=== PATIENT | male | born 1985 | race Caucasian/White ===

== ENCOUNTER → 2021-10-26 12:24 | Outpatient (BNVA) | payer MEDICAID, SELFPAY | PROVIDERS: Visit Provider Emergency Medicine | DX: M25.571 Pain in right ankle and joints of right foot (principal) | CPT/HCPCS: 73610 ==

== ENCOUNTER → 2022-07-24 17:52 | Outpatient (BNVA) | payer MEDICAID, SELFPAY | PROVIDERS: Visit Provider Nurse Practitioner Family | DX: R10.9 Unspecified abdominal pain (principal); M25.521 Pain in right elbow; R20.2 Paresthesia of skin; N50.812 Left testicular pain; R10.32 Left lower quadrant pain | CPT/HCPCS: 81000; 87086 ==

== ENCOUNTER → 2022-08-02 15:50 | Outpatient (BNVA) | payer MEDICAID, SELFPAY | PROVIDERS: Visit Provider Emergency Medicine | DX: M25.521 Pain in right elbow (principal); R20.2 Paresthesia of skin | CPT/HCPCS: 73080 ==

== ENCOUNTER 2022-09-19 13:16 | Outpatient (CLI) | payer BC, SELFPAY ==
--- NOTE | 2022-09-19 13:15 | US_ITS ---
WS: [id number] TESTICULAR ULTRASOUND HISTORY: N50.812 - Left testicular pain COMPARISON: None available. TECHNIQUE: Real-time and color Doppler imaging or utilized to perform a testicular ultrasound. Right testicle: 3.6 cm x 3.0 cm x 1.9 cm. Normal size and echogenicity. No mass or torsion. Normal color Doppler is present throughout. Systolic and diastolic velocities are both present. No significant hydrocele. Right epididymis: Normal epididymis with no increased vascularity. Small spermatocele with a maximum diameter 4 mm. Left testicle: 3.7 cm x 3.5 cm x 1.9 cm. Normal size and echogenicity. No mass or torsion. Normal color Doppler is present throughout. Systolic and diastolic velocities are both present. No significant hydrocele. Left epididymis: Normal epididymis with no increased vascularity. Mildly prominent and piriform complexes, bilaterally. Early changes of varicoceles likely but minimal at this time. US/US scrotum [id number] IMPRESSION: 1. No testicular mass or torsion. 2. No orchitis.
== END 2022-09-19 13:17 | disposition home or self-care (01) ==
LOC: RAD 13:18
PROVIDERS: Visit Provider Nurse Practitioner Family
DX: N50.812 Left testicular pain (principal); R10.32 Left lower quadrant pain
CPT/HCPCS: 76870

== ENCOUNTER 2022-12-28 13:55 | Emergency (ER) | payer BC, MEDICAID, SELFPAY ==
[2022-12-28 14:04] VITALS: BP 153/91; PULSE 77; RESP 15; TEMP 36.8; O2SAT 96
--- NOTE | 2022-12-28 16:46 | W.ED.SKABFB ---
HPI - Skin/Abscess/Foreign Bdy General: Chief complaint: Skin/Abscess/Foreign Body Stated complaint: face swelling Time Seen by Provider: 12/28/22 16:31 History of Present Illness: Patient is a 37-year-old male who comes to the ED with dental infection. Patient has had problems with his teeth for over a year and he has been trying to get appointment scheduled to get some of his teeth pulled. Several days ago patient started developing some pain in his right upper molar region of jaw. This morning he woke up and he had swelling on the right maxillary region of his face. Facial swelling improved with cold pack placed on swollen area of face. Patient saw PCP 2 days ago and was put on a prescription for clindamycin and tramadol. Patient has only taken 1 full day of antibiotic. Denies any trouble breathing. Associated symptoms: Deny chills, fever(s), nausea or vomiting Review of Systems Const: Denies: fever(s), chills or fatigue Eyes: Denies: change in vision or eye discomfort ENMT: Reports: dental pain; Denies: throat pain, odynophagia, nasal discharge or nasal congestion Card: Denies: chest pain, palpitations, edema, swelling of feet/ankles, dyspnea on exertion or orthopnea Resp: Denies: dyspnea, productive cough or non-productive cough GI: Denies: abdominal pain, nausea, vomiting, diarrhea, constipation or hematochezia : Denies: flank pain, difficulty urinating, dysuria or hematuria Musc: Denies: neck pain, back pain or extremity swelling Skin/Breast: Denies: rash or new lesions Neuro: Denies: headache(s), numbness in extremities or weakness in extremities [facility] ED PFSH: Medical History (Updated 12/29/22 @ 07:31 by GORDO Dutton) ADHD Anxiety MDD (major depressive disorder) No pertinent family history Social History Smoking and tobacco status: current every day smoker (vaping) Current gender identity: Male Physical Exam Const: COMMON NORMALS: no acute distress, patient oriented x3 and alert HENMT: COMMON NORMALS: normocephalic HEAD & SCALP: normocephalic MOUTH: Normal oral and palatal mucosa present TEETH & GINGIVA: Yes caries, Yes gingiva abnormal edematous (Around top right molars) and tender (Around top right molars) and Yes poor dentition THROAT: posterior oropharynx normal and uvula midline OTHER: Patient is poor dentition with extensive dental caries and dental decay throughout oral cavity. Neck/C-Spine: COMMON NORMALS: supple GENERAL: Yes normal visual inspection Resp: COMMON NORMALS: normal respiratory effort, No retractions, No use of accessory muscles and clear to auscultation bilaterally AUSCULTATION: clear to auscultation bilaterally Cardio: COMMON NORMALS: regular rate, regular rhythm, S1 normal heart sound present, S2 normal heart sound present, No gallops present (Cardio), No clicks present (Cardio), No murmurs present (Cardio) and Peripheral pulses 2+ throughout RATE: regular rate RHYTHM: regular rhythm HEART SOUNDS: S1 normal heart sound present and S2 normal heart sound present PERIPHERAL PULSES: Peripheral pulses 2+ throughout GI: COMMON NORMALS: Normal to inspection, nondistended, normoactive bowel sounds present, Soft to palpation, non-tender and no masses PALPATION: Yes Soft to palpation : COMMON NORMALS: Yes no CVA tenderness BLADDER/KIDNEY EXAM: Yes no CVA tenderness Back/Pelvis: COMMON NORMALS: no CVA tenderness Extremity: COMMON NORMALS: normal to inspection Neuro: COMMON NORMALS: patient oriented x3 SENSORIUM/ORIENTATION: Yes alert GAIT: Yes Normal gait present Skin: GENERAL SKIN EXAM: dry skin Course Vital Signs: Vital signs: Vital Signs Temperature 98.2 F 12/28/22 14:04 Pulse Rate 77 12/28/22 14:04 Respiratory Rate 15 12/28/22 14:04 Blood Pressure 153/91 12/28/22 14:04 Pulse Oximetry 96 12/28/22 14:04 Oxygen Delivery Me thod Room Air 12/28/22 14:04 MDM - Skin/Abscess/Foreign Bdy Medicial Decision Making Patient is a 37-year-old male who comes to the ED with dental infection. Patient has had problems with his teeth for over a year and he has been trying to get appointment scheduled to get some of his teeth pulled. Several days ago patient started developing some pain in his right upper molar region of jaw. This morning he woke up and he had swelling on the right maxillary region of his face. Facial swelling improved with cold pack placed on swollen area of face. Patient saw PCP 2 days ago and was put on a prescription for clindamycin and tramadol. Patient has only taken 1 full day of antibiotic. Denies any trouble breathing. Vitals are stable. Patient has poor dentition with extensive dental caries and teeth decay all throughout his oral cavity. Gingival edema and erythema noted around top right molars. Rest of exam is benign. Patient was given a dose of Percocet and Rocephin IM here in the ED. He was stable for discharge home diagnosed with a dental infection. He was told to continue taking his previously prescribed clindamycin and tramadol for pain. He was informed to follow-up with dentist as soon as possible to have dental infection further evaluated and treated. Patient understood and agreed with plan. Discharge Plan Discharge Patient Disposition: Home Clinical Impression: Dental infection Condition: Stable Prescriptions: No Action meloxicam 7.5 mg tablet 7.5 mg PO BEDTIME Qty: 30 1RF Discharge Orders: Discharge ED (Routine); Ordered 12/28/22 Ordered By: Brett Wilkinson Discharge Diet: Regular Discharge Activity: Increase activity as tolerated Activity Restrictions/Additional Instructions: Follow-up with dentist at your next scheduled appointment to have dental infection treated. Continue taking your previously prescribed clindamycin and tramadol. Return to the ER or your medical provider if condition worsens. Please read and understand discharge instructions. Thank you for choosing [facility] for your healthcare needs today. Please realize this is an emergency room and that we are providing you with a medical screening exam and this may not be complete and all inclusive of all the testing and or work up that you may need to determine your ailment or severity of your illness. It is very important that you follow up as instructed or that you return to the Emergency Department should you have concerns or if your condition changes or worsens in any way. 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
[2022-12-28] MEDS: cefTRIAXone 1,000 MG in water for injection-sterile 2.1 ML 1 MG IM (17:01)
[2022-12-28] MEDS: oxyCODONE-APAP 5-325 mg Tablet 1 TAB PO (17:02)
== END 2022-12-28 17:06 | disposition home or self-care (01) ==
PROVIDERS: Emergency Provider Physician Assistant
DX: K04.7 Periapical abscess without sinus (principal); F17.290 Nicotine dependence, other tobacco product, uncomplicated
CPT/HCPCS: 96372; 99284; J0696

== ENCOUNTER 2023-04-06 21:24 | Inpatient (IN) | payer OTHER, BC, SELFPAY ==
[2023-04-06 21:25] VITALS: BP 151/101; PULSE 56; RESP 16; TEMP 36.7; O2SAT 98; BMI 23.8
--- NOTE | 2023-04-06 21:30 | W.ED.PSYCHS ---
HPI - Psych General: Chief Complaint: Psychiatric Symptoms Stated Complaint: SI/ Had knife to throat Time Seen by Provider: 04/06/23 21:26 Source: patient and EMS Mode of arrival: EMS Limitations: no limitations History of Present Illness: 37-year-old male who states that he has had increasing depression he states he tried to use feeling suicidal he states he had a knife to his throat and felt like he was going to do it he had called to get out he was brought in by EMS Associated symptoms: Reports depression and suicidal ideation Review of Systems Const: Denies: fever(s) or chills Eyes: Denies: eye discomfort ENMT: Denies: throat pain or dental pain Card: Denies: chest pain Resp: Denies: dyspnea GI: Denies: abdominal pain, nausea, vomiting or diarrhea Musc: Denies: neck pain or back pain Skin/Breast: Denies: rash Neuro: Denies: headache(s) Psych: Reports: depression and suicidal ideation PFS ED PFSH: Medical History ADHD Anxiety MDD (major depressive disorder) No pertinent family history Social History Smoking and tobacco/nicotine status: current every day tobacco/nicotine user (vaping) Current gender identity: Male Physical Exam Const: COMMON NORMALS: no acute distress, patient oriented x3 and healthy appearing HENMT: COMMON NORMALS: normocephalic and atraumatic HEAD & SCALP: normocephalic and atraumatic Eye: COMMON NORMALS: conjunctivae normal CONJUNCTIVA: Yes conjunctivae normal Neck/C-Spine: COMMON NORMALS: full ROM and supple Chest: COMMONS NORMALS: normal inspection of the chest and normal palpation of entire chest wall Resp: COMMON NORMALS: normal respiratory effort, No retractions, No use of accessory muscles and clear to auscultation bilaterally AUSCULTATION: clear to auscultation bilaterally Cardio: COMMON NORMALS: regular rate, regular rhythm and No murmurs present (Cardio) RATE: regular rate RHYTHM: regular rhythm GI: COMMON NORMALS: Normal to inspection, nondistended, normoactive bowel sounds present, Soft to palpation, non-tender and no masses PALPATION: Yes Soft to palpation Extremity: COMMON NORMALS: normal to inspection and full ROM Neuro: COMMON NORMALS: patient oriented x3, moves all extremities and no focal motor deficits Psych: COMMON NORMALS: mental status grossly normal, Normal thought process present and cooperative MOOD & AFFECT: Yes depressed mood THOUGHT PROCESS: Normal thought process present THOUGHT CONTENT: Yes Suicidality present Skin: COMMON NORMALS: no rashes or lesions noted and no wounds GENERAL SKIN EXAM: no rashes or lesions noted Course Vital Signs: Vital signs: Vital Signs Temperature 98.0 F 04/06/23 21:25 Pulse Rate 56 L 04/06/23 21:25 Respiratory Rate 16 04/06/23 21:25 Blood Pressure 151/101 04/06/23 21:25 Pulse Oximetry 98 04/06/23 21:25 MDM - Psych Medical Decision Making patient presents here with suicidal ideations he is medically cleared spoke to psychiatrist Dr. Jaramillo and will admit at this time Medical Records I reviewed the patient's medical records. Lab Data I reviewed the patient's lab results. 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
--- NOTE | 2023-04-06 21:58 | PC.NURSE ---
96 Hour Hold Pt served with copy of 96 Hour Hold by this RN and Security. Pt was pleasant and denied need for further education.
[2023-04-06 22:03] LABS: Basophils # 0.1 10^3/uL (0.0-0.1); Basophils % 0.5 %; Eosinophils # 0.2 10^3/uL (0.0-0.8); Eosinophils % 1.3 %; Hematocrit 43.5 % (37-53); Lymphocytes # 1.2 10^3/uL (0.8-4.8); Lymphocytes % 7.9 %; Mean Corpuscular HGB Conc 32.9 g/dL (30-55); Mean Corpuscular Hemoglobin 29.4 pg (27-33); Mean Corpuscular Volume 89.5 fl (82-101); Mean Platelet Volume 12.3 fL (7.4-10.4); Monocytes # 0.6 10^3/uL (0.2-0.9); Monocytes % 4.2 %; Neutrophils # 13.14 10^3/uL (1.8-7.7); Neutrophils % 85.6 %; Nucleated Red Blood Cells % 0 %; Platelet Count 171 10^3/cmm (157-399); Red Blood Count 4.86 10^6/uL (3.85-5.65); White Blood Count 15.35 10^3/uL (3.29-11.43)
[2023-04-06 22:19] LABS: Amphetamines Screen Urine Negative (Negative); Cocaine Screen Urine Negative (Negative); Opiate Screen Urine Negative (Negative); PCP Screen Urine Negative (Negative); THC Screen Urine Positive (Negative)
[2023-04-06 22:20] LABS: Barbiturates Screen Urine Negative (Negative); Benzodiazepines Screen Urine Negative (Negative)
[2023-04-06 22:22] LABS: Alanine Aminotransferase 11 U/L (0-41); Albumin Level 4.4 g/dL (3.5-5.2); Alkaline Phosphatase 66 U/L (40-130); Anion Gap 11.9 (5-19); Aspartate Amino Transferase 13 U/L (0-40); Blood Urea Nitrogen 7 mg/dL (6-20); Calcium 9.3 mg/dL (8.5-10.5); Carbon Dioxide 28 mmol/L (22-29); Chloride 105 mmol/L (98-107); Globulin 2.4 g/dL (1.3-4.6); Glomerular Filtration Rate 94.4 mL/min (90-130); Glucose 96 mg/dL (65-115); Osmolality Calculated 290 mOsm/kg (285-295); Potassium 3.9 mmol/L (3.5-5.1); Sodium 141 mmol/L (136-145); Total Bilirubin 1.5 mg/dL (0.15-1.2); Total Protein 6.8 g/dL (6.6-8.7)
[2023-04-06 22:24] LABS: Acetaminophen < 5.0 ug/mL (10-30); Alcohol Level < 10 mg/dL (0-10); Salicylate < 0.3 mg/dL (3-10)
[2023-04-06 22:44] VITALS: BP 151/101; PULSE 56; RESP 16; TEMP 36.7; O2SAT 98
[2023-04-06 23:18] VITALS: BP 129/76; PULSE 63; RESP 18; TEMP 36.8; O2SAT 98
--- NOTE | 2023-04-06 23:33 | PC.ADMIT ---
[email or web address] [facility] Admission Note: The patient,Sp Padilla,37 y/o, was given written information regarding hospital policies, unit procedures and contact persons. Patient's smoking status: current every day smoker.1-2 PACKS A DAY Vital Signs - 8 hr 04/06/23 21:25 04/06/23 22:44 04/06/23 23:17 Temperature 98.0 F 98.0 F Pulse Rate 56 L 56 L Respiratory Rate 16 16 Blood Pressure 151/101 151/101 Pulse Oximetry 98 98 Oxygen Delivery Method Room Air 04/06/23 23:18 Temperature 98.3 F Pulse Rate 63 Respiratory Rate 18 Blood Pressure 129/76 Pulse Oximetry 98 Oxygen Delivery Method Room Air PT WAS ADMITTED FROM ER VIA WHEELCHAIR AND SECURITY AT 2238 IN NO ACUTE DISTRESS. PT WAS PLACED ON A 96 HOUR HOLD THAT ENDS 04/11/23 AT 0001. PT STATES HE IS HERE BECAUSE I HAD A KNIFE IN MY HAND TONIGHT AND WANTED TO HARM MYSELF. PT HAS A HEART MONITOR IN PLACE DUE TO A ATRIAL SEPTAL ANYREUSM THAT HE WAS RECENTLY DIAGNOSED WITH IN [place]. HEART MONITOR IS ADHERED TO MIDDLE OF CHEST AND HAS A PHONE TO RECORD THE DATA. PT CAN NOT BE MORE THAN 10 FEET FROM THE PHONE.PT REPORTS MORPHINE AND PCN ALLERGIES. REPORTS HE TAKES KEPPRA 1250 PO BID FOR SEIZURES WITH HIS LAST SEIZURE BEING 2 WEEKS AGO. ALSO STATES HE RECENTLY WAS PLACED ON EFFEXOR 75 MG AND BELIEVES HIS SUICIDAL FEELINGS ARE FROM THE MEDICATION. PT WAS BEING WEANED OFF OF CYMBALTA BUT PT STATES HE JUST STOPPED TAKING IT ALL TOGETHER. PT REPORTS ALSO TAKING PROTONIX 40 MG PO DAILY AND VITAMIN B6 DAILY AND VITAMIN D DAILY. BROUGHT IN MEDICATIONS THIS RN WILL REVIEW AND RECONCILE. PT DECLINES FLU VACCINATION. PT DENIES SI/HI AND AVH AT THIS TIME. PT STATES HE NO LONGER FEELS LIKE HARMING HIMSELF. SKIN ASSESSMENT REVEALED A BASEBALL SIZE BRUISE TO RIGHT INNER THIGH AND MULTIPLE TATTOOS. PT WAS WANDED. PT STATES HE USES [facility]. PT STATES HE HAS A MEDICAL MARIJUANA CARD AND SMOKES THC DAILY. UDS POSITIVE FOR THC. PT STATES HE HAS BEEN DIAGNOSED WITH ADHD, ANXIETY AND DEPRESSION BUT DOES NOT SEE A PSYCHIATRIST AT THIS TIME, HIS ROLL LINE OPERATOR PRESCRIBES HIM HIS MENTAL HEATLH MEDICATIONS. PT ORIENTED TO UNIT/RULES AND SAFETY GUIDELINES. ALL QUESTIONS ANSWERED AND SUPPORT WAS VOICED. PT OFFERED DRINK AND SNACK BUT DECLINED. ASSISTED TO ROOM WHERE STAFF IS PRESENT FOR ONE ON ONE CARE DUE TO HEART MONITOR AND PHONE. [address]
--- NOTE | 2023-04-07 00:01 | PC.NURSE ---
HOME MEDICATIONS RECEIVED FROM PT PROPERTY. NEW ORDERS RECEIVED FROM DR. CASAS TO START KEPPRA 1000MG PO BID, PROTONIX 40 MG PO DAILY, VITAMIN B6 50 MG PO DAILY AND VITAMIN D3 1000 UNITS PO DAILY. ORDERS PLACED, PT EDUCATED. VERBALIZED UNDERSTANDING.
[2023-04-07 06:00] VITALS: BP 114/72; PULSE 64; RESP 15; TEMP 36.8; O2SAT 97
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
[2023-04-07] MEDS: cholecalciferol (vitamin D3) 1,000 unit Tablet 1000 UNIT PO (09:02)
[2023-04-07] MEDS: levETIRAcetam 500 mg Tablet 1000 MG PO ×2 (09:02→20:41)
[2023-04-07] MEDS: pyridoxine 50 mg Tablet PO (09:03)
[2023-04-07] MEDS: pantoprazole DR 40 mg Tablet PO (09:03)
--- NOTE | 2023-04-07 10:54 | PC.NURSE ---
Patient denies avh and si/hi this morning. He does, however, endorse not caring if he lives or not. He states, I'm just tired of fighting. You have to have something to fight for. Patient says he is a bit anxious this morning and very irritated because he feels he ruined his relationship with his and he reports she was very short with him. He also expresses frustration with his medical status, as he currently has to wear a heart monitor and is having seizures for no apparent reason. Support was voiced and patient agreed to let nurse know if his anxiety worsened or if his thoughts of suicide resurfaced.
[2023-04-07] MEDS: nicotine 4 mg lozenge MUCOUS MEM ×2 (11:00→18:07)
--- NOTE | 2023-04-07 11:12 | PC.NURSE ---
Patient reported bloody stools. Dr. Jaramillo was notified by this RN. No further orders were given at this time.
[2023-04-07] MEDS: venlafaxine ER (24HR) 150 mg Capsule PO (12:12)
[2023-04-07 14:00] VITALS: BP 137/77; PULSE 58; RESP 16; TEMP 36.6; O2SAT 100
[2023-04-07 20:10] VITALS: BP 134/88; PULSE 71; RESP 16; TEMP 36.9; O2SAT 96
[2023-04-07] MEDS: acetaminophen 325 mg Tablet 650 MG PO (20:41)
[2023-04-07] MEDS: OLANZapine 5 mg ODT PO (20:41)
--- NOTE | 2023-04-07 21:47 | PC.NURSE ---
PT IN BED, ONE ON ONE SITTER AT BEDSIDE DUE TO HEART MONITOR AND CELL PHONE THAT RECORDS DATA. PT REPORTS HEADACHE 11/30, TYLENOL WAS GIVEN ORDERED. PT ENDORSES SUICIDAL THOUGHTS WITH SEVERAL PLANS TO END IT ALL. PT WOULD NOT ELABORATE ON PLANS AT THIS TIME, ONLY STATES IT DOESN'T MATTER HOW. PT STATES HE FEELS LIKE HE IS HAVING THESE SUICIDAL THOUGHTS DUE TO TAKING KEPPRA. PT STATED TO RN YOU DO KNOW THAT IS A SIDE EFFECT RIGHT, PT WAS ENCOURAGED TO DISCLOSE PLAN BUT DID NOT. PT AGREED TO COME AND SPEAK TO STAFF IF SUICIDAL FEELINGS GOT WORSE OR HE WAS HAVING FEELINGS OF HARMING SELF. PT STATES I'M NOT GOING TO HURT MYSELF WHILE I'M HERE, THEN HE LAUGHED AND SHRUGGED HIS SHOULDER. PT HAS BEEN IN A CHEERFUL MOOD AND INTERACTS WITH STAFF AND PEERS AND TRYS TO JOKE AROUND ALOT AND LAUGH. PT WAS ENCOURAGED TO COME AND SPEAK TO STAFF IF HE NEEDED ANYTHING. PT DID REQUEST SOMETHING FOR ANXIETY THAT STARTS WITH A C. PT WAS WANTING CLONAZEPAM AND REPORTS HIS EXWIFE GAVE HIM ONE OF HERS ONE DAY AND IT REALLY HELPED. PT WAS ENCOURAGED TO SPEAK WITH DR. CASAS ABOUT THAT WHEN HE SEES HIM TOMORROW. PT WAS ADMINISTERED 5 MG OF ZYDIS ORDERED FOR INCREASED ANXIETY. PT WAS OFFERED MEDICATIONS TO HELP HIM SLEEP BUT HE DECLINES. SUPPORT WAS VOICE.
[2023-04-08 06:00] VITALS: BP 111/70; PULSE 58; RESP 16; TEMP 36.9; O2SAT 96
[2023-04-08] MEDS: cholecalciferol (vitamin D3) 1,000 unit Tablet 1000 UNIT PO (08:41)
[2023-04-08] MEDS: venlafaxine ER (24HR) 150 mg Capsule PO (08:41)
[2023-04-08] MEDS: levETIRAcetam 500 mg Tablet 1000 MG PO ×2 (08:42→20:21)
[2023-04-08] MEDS: pyridoxine 50 mg Tablet PO (08:42)
[2023-04-08] MEDS: pantoprazole DR 40 mg Tablet PO (08:42)
[2023-04-08] MEDS: nicotine 4 mg lozenge MUCOUS MEM ×4 (08:43→20:21)
[2023-04-08 11:15] LABS: Levetiracetam Immunoassy 3.5 mcg/mL (6.0-46.0)
--- NOTE | 2023-04-08 13:25 | W.PM.NPUPNS ---
Subjective NPU Subjective: Patient presented today reporting that he is tolerating the increase in the medication okay. He denies any cardiac issues today. 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 He has been working with the social work team on appropriate plans for aftercare. We agreed to take the situation 1 day at a time and continue to evaluate for safety for discharge. Mental Status Exam MSE Comments: This is a well-nourished, well-developed, white male, in hospital scrubs, with limited grooming and adequate eye contact. No abnormal movements, except for mild psychomotor retardation. Cooperative with exam in mild distress. Speech was normal rate and volume. Mood described as alright, tired; affect congruent. Thought process, organized. Thought content: patient denied any suicidal or homicidal ideation; there were no delusions reported or noted; patient denied any auditory or visual hallucinations. Attention, concentration, and memory appeared intact, but none were formally tested. Alert and oriented times three. Insight and judgment are limited. Impulse control is impaired. Vitals/I&O/Wt Last Vital Signs Temp 98.4 F 04/08/23 06:00 Pulse 58 L 04/08/23 06:00 Resp 16 04/08/23 06:00 BP 111/70 04/08/23 06:00 Pulse Ox 96 04/08/23 06:00 O2 Del Method Room Air 04/08/23 06:00 Weight last 48 hrs Weight 82.1 kg Data NPU 04/06/23 22:00 04/06/23 22:00 A&P Assessment and plan (1) ADHD: (2) MDD (major depressive disorder): (3) Anxiety: (4) Suicidal ideation: Plan This is a 37-year-old, white male, with a long history of mental health issues, with genetic loading for mental health and addiction issues, with a relatively short of history of mental health treatment, who presented to the hospital secondary to suicidality, reporting a willingness for medication changes. 1.? Continue current medication. Increased Effexor XR to 150 mg p.o. daily, 2.? Encourage individual, group, and milieu therapy. 3.? Continue q-15-minute checks for safety. Involuntary Hold Information 96 Hour Hold: 96 Hour Involuntary Admission: Yes 96 Hour Hold Ending Date: 04/11/23 96 Hour Hold Ending Time: 00:01 Attestations NPU Medical Necessity Statement*: Inpatient hospitalization is medically necessary and the clinically appropriate intervention, at this time. We will monitor medications and make changes as indicated. Likely length of stay is 2-4 days. Coding Level of Care Code Acute Code for [facility] Fwd Diagnoses ADHD F90.9 MDD (major depressive disorder) F32.9 Anxiety F41.9 Suicidal ideation R45.851
[2023-04-08 14:00] VITALS: BP 113/76; PULSE 61; RESP 18; TEMP 36.6; O2SAT 99
[2023-04-08] MEDS: trazodone 50 mg Tablet PO (20:21)
[2023-04-08] MEDS: levETIRAcetam 500 mg Tablet 250 MG PO (20:22)
[2023-04-08] MEDS: OLANZapine 5 mg ODT PO (21:10)
[2023-04-08 21:12] VITALS: BP 125/82; PULSE 62; RESP 18; TEMP 36.5; O2SAT 97
[2023-04-09 06:00] VITALS: BP 102/68; PULSE 69; RESP 18; TEMP 36.6; O2SAT 98
[2023-04-09] MEDS: levETIRAcetam 500 mg Tablet 1000 MG PO ×2 (08:35→20:22)
[2023-04-09] MEDS: pyridoxine 50 mg Tablet PO (08:37)
[2023-04-09] MEDS: pantoprazole DR 40 mg Tablet PO (08:37)
[2023-04-09] MEDS: cholecalciferol (vitamin D3) 1,000 unit Tablet 1000 UNIT PO (08:37)
[2023-04-09] MEDS: venlafaxine ER (24HR) 150 mg Capsule PO (08:38)
[2023-04-09] MEDS: nicotine 4 mg lozenge MUCOUS MEM ×3 (11:38→20:41)
[2023-04-09 14:00] VITALS: BP 99/63; PULSE 52; RESP 16; TEMP 36.7; O2SAT 98
--- NOTE | 2023-04-09 19:44 | P.NPUPN_ITS ---
Subjective NPU Subjective: Patient presented today reporting that he is feeling a little better. He endorsed having some anxiety about leaving too early or not getting issues dealt with due to impatience. He also talked about having anxiety. We discussed reviewing his medications and considering an antianxiety medication like BuSpar. We agreed he would consider BuSpar after exploring the risks, benefits and alternatives he understood and agreed to think about starting the medication. We talked about working with the social work team on discharge planning. Mental Status Exam MSE Comments: This is a well-nourished, well-developed, white male, in hospital scrubs, with limited grooming and adequate eye contact. No abnormal movements, except for mild psychomotor retardation. Cooperative with exam in mild distress. Speech was normal rate and volume. Mood described as alright, tired; affect congruent. Thought process, organized. Thought content: patient denied any suicidal or homicidal ideation; there were no delusions reported or noted; patient denied any auditory or visual hallucinations. Attention, concentration, and memory appeared intact, but none were formally tested. Alert and oriented times three. Insight and judgment are limited. Impulse control is impaired. Vitals/I&O/Wt Last Vital Signs Temp 98.0 F 04/09/23 14:00 Pulse 52 L 04/09/23 14:00 Resp 16 04/09/23 14:00 BP 99/63 04/09/23 14:00 Pulse Ox 98 04/09/23 14:00 O2 Del Method Room Air 04/09/23 06:00 Data NPU 04/06/23 22:00 04/06/23 22:00 A&P Assessment and plan (1) ADHD: (2) MDD (major depressive disorder): (3) Anxiety: (4) Suicidal ideation: Plan This is a 37-year-old, white male, with a long history of mental health issues, with genetic loading for mental health and addiction issues, with a relatively short of history of mental health treatment, who presented to the hospital secondary to suicidality, reporting a willingness for medication changes. 1.? Continue current medication. Increased Effexor XR to 150 mg p.o. daily, 2.? Encourage individual, group, and milieu therapy. 3.? Continue q-15-minute checks for safety. Involuntary Hold Information 2 96 Hour Hold: 96 Hour Involuntary Admission: Yes 96 Hour Hold Ending Date: 04/11/23 96 Hour Hold Ending Time: 00:01 Attestations NPU Medical Necessity Statement*: Inpatient hospitalization is medically necessary and the clinically appropriate intervention, at this time. We will monitor medications and make changes as indicated. Likely length of stay is 1-3 days. Coding Level of Care Code Acute Code for [facility] Fwd Diagnoses ADHD F90.9 MDD (major depressive disorder) F32.9 Anxiety F41.9 Suicidal ideation R45.851
[2023-04-09 20:22] VITALS: BP 116/81; PULSE 75; RESP 20; TEMP 36.9; O2SAT 95
[2023-04-09] MEDS: OLANZapine 5 mg ODT PO (20:22)
[2023-04-09] MEDS: trazodone 50 mg Tablet PO (20:23)
[2023-04-09] MEDS: levETIRAcetam 500 mg Tablet 250 MG PO (20:23)
[2023-04-10 06:00] VITALS: BP 104/63; PULSE 65; RESP 17; TEMP 36.6; O2SAT 97
[2023-04-10] MEDS: cholecalciferol (vitamin D3) 1,000 unit Tablet 1000 UNIT PO (08:35)
[2023-04-10] MEDS: pyridoxine 50 mg Tablet PO (08:35)
[2023-04-10] MEDS: levETIRAcetam 500 mg Tablet 1000 MG PO ×2 (08:35→20:41)
[2023-04-10] MEDS: nicotine 4 mg lozenge MUCOUS MEM ×3 (08:35→16:17)
[2023-04-10] MEDS: pantoprazole DR 40 mg Tablet PO (08:35)
[2023-04-10] MEDS: venlafaxine ER (24HR) 150 mg Capsule PO (08:35)
[2023-04-10 14:00] VITALS: BP 126/74; PULSE 76; RESP 17; TEMP 36.8; O2SAT 97
[2023-04-10] MEDS: acetaminophen 325 mg Tablet 650 MG PO (16:17)
--- NOTE | 2023-04-10 18:12 | P.NPUPN_ITS ---
Subjective NPU Subjective: Patient presented today reporting that he is doing okay and a little better. We discussed the fact that his 96-hour hold but in around midnight tonight and he was agreeable to sign in with a tentative plan for discharge in the morning. He continued to discuss some level reticence about leaving. We discussed working with the social work team for a possible answer for his residency issues. Mental Status Exam MSE Comments: This is a well-nourished, well-developed, white male, in hospital scrubs, with limited grooming and adequate eye contact. No abnormal movements, except for mild psychomotor retardation. Cooperative with exam in mild distress. Speech was normal rate and volume. Mood described as a little better; affect congruent. Thought process, organized. Thought content: patient denied any suicidal or homicidal ideation; there were no delusions reported or noted; patient denied a ny auditory or visual hallucinations. Attention, concentration, and memory appeared intact, but none were formally tested. Alert and oriented times three. Insight and judgment are limited, but improving. Impulse control is limited. Vitals/I&O/Wt Last Vital Signs Temp 98.5 F 04/10/23 19:41 Pulse 88 04/10/23 19:41 Resp 12 04/10/23 19:41 BP 117/85 04/10/23 19:41 Pulse Ox 98 04/10/23 19:41 O2 Del Method Room Air 04/10/23 19:41 Data NPU 04/06/23 22:00 04/06/23 22:00 A&P Assessment and plan (1) ADHD: (2) MDD (major depressive disorder): (3) Anxiety: (4) Suicidal ideation: Plan This is a 37-year-old, white male, with a long history of mental health issues, with genetic loading for mental health and addiction issues, with a relatively short of history of mental health treatment, who presented to the hospital seco ndary to suicidality, reporting a willingness for medication changes. 1.? Continue current medication. Increased Effexor XR to 150 mg p.o. daily, 2.? Encourage individual, group, and milieu therapy. 3.? Continue q-15-minute checks for safety. Involuntary Hold Information 96 Hour Hold: 96 Hour Involuntary Admission: Yes 96 Hour Hold Ending Date: 10/20/23 96 Hour Hold Ending Time: 00:01 Attestations NPU Medical Necessity Statement*: Inpatient hospitalization is medically necessary and the clinically appropriate intervention, at this time. We will monitor medications and make changes as indicated. Likely length of stay is 1-3 days. Coding Level of Care Code Acute Code for [facility] Fwd Diagnoses ADHD F90.9 MDD (major depressive disorder) F32.9 Anxiety F41.9 Suicidal ideation R45.851
[2023-04-10 19:41] VITALS: BP 117/85; PULSE 88; RESP 12; TEMP 36.9; O2SAT 98
[2023-04-10] MEDS: OLANZapine 5 mg ODT PO (20:40)
[2023-04-10] MEDS: trazodone 50 mg Tablet PO (20:40)
[2023-04-10] MEDS: levETIRAcetam 500 mg Tablet 250 MG PO (20:41)
[2023-04-11 06:00] VITALS: BP 111/69; PULSE 70; RESP 12; TEMP 36.5; O2SAT 98
[2023-04-11] MEDS: pantoprazole DR 40 mg Tablet PO (08:08)
[2023-04-11] MEDS: levETIRAcetam 500 mg Tablet 1000 MG PO (08:08)
[2023-04-11] MEDS: pyridoxine 50 mg Tablet PO (08:08)
[2023-04-11] MEDS: venlafaxine ER (24HR) 150 mg Capsule PO (08:08)
[2023-04-11] MEDS: cholecalciferol (vitamin D3) 1,000 unit Tablet 1000 UNIT PO (08:09)
[2023-04-11] MEDS: nicotine 4 mg lozenge MUCOUS MEM ×2 (08:11→12:28)
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
[2023-04-11 11:31] VITALS: BP 111/69; PULSE 70; RESP 12; TEMP 36.5; O2SAT 98
== END 2023-04-11 13:24 | disposition home or self-care (01) | DRG 881 ==
LOC: ER 21:33 → NP 22:00
PROVIDERS: Admitting Provider Psychiatry & Neurology Psychiatry; Emergency Provider Emergency Medicine; Visit Provider Psychiatry & Neurology Psychiatry
DX: F32.9 Major depressive disorder, single episode, unspecified (principal); R45.851 Suicidal ideations; Z91.128 Patient's intentional underdosing of medication regimen for other reason; F17.220 Nicotine dependence, chewing tobacco, uncomplicated; F17.210 Nicotine dependence, cigarettes, uncomplicated; F17.290 Nicotine dependence, other tobacco product, uncomplicated; F12.90 Cannabis use, unspecified, uncomplicated; F41.9 Anxiety disorder, unspecified; Z81.8 Family history of other mental and behavioral disorders; Z81.3 Family history of other psychoactive substance abuse and dependence; Z88.5 Allergy status to narcotic agent; Z88.0 Allergy status to penicillin; Z87.820 Personal history of traumatic brain injury; F90.9 Attention-deficit hyperactivity disorder, unspecified type
CPT/HCPCS: 36415; 80053; 80177; 80306; 80307; 85025; 97150; 97165; 99285